=== PATIENT | male | born 1975 | race Caucasian/White ===

== ENCOUNTER 2021-05-08 10:30 | Observation (INO) | payer SELFPAY ==
[~2021-05-08 10:30] MED LIST: Iopamidol 370 76% 100 ML VIAL ONE; Iopamidol-370 76% 500 ML 1 ML ONE
[2021-05-08 11:08] LABS: #Basophils 0.1 thou/uL (0.0-0.2); #Eosinphils 0.1 thou/uL (0.0-0.7); #Monocytes 0.5 thou/uL (0.11-0.59); #Neutrophils 4.4 thou/uL (1.40-6.50); %Eosinophils 1.7 % (0.0-10.0); %Lymphocytes 28.4 % (21.0-51.0); %Monocytes 6.3 % (0.0-10.0); %Neutrophils 62.6 % (42.0-75.0); Hemoglobin 16.1 g/dL (14.0-18.0); Mean Corpuscular Volume 88.9 fL (78.0-98.0); Mean Platelet Volume 8.8 fL (7.4-10.4); Platelet Count 190 thou/uL (130-400); RBC Distribution Width 11.2 % (11.5-14.5); Red Blood Cell (RBC) Count 5.03 mill/uL (4.70-6.10)
[2021-05-08 11:38] LABS: ALT (SGPT) 19 U/L (8-55); AST (SGOT) 12 U/L (5-34); Albumin 4.2 g/dL (3.5-5.0); Alkaline Phosphatase 95 U/L (40-110); Anion Gap 12 mmol/L (10-20); BUN (Urea Nitrogen) 8 mg/dL (8.9-20.6); Bilirubin, Total 0.6 mg/dL (0.2-1.2); Calc. Creatinine Clearance 0 mL/min (70-130); Calcium 9.3 mg/dL (7.8-10.44); Carbon Dioxide 28 mmol/L (22-29); Chloride 100 mmol/L (98-107); Globulin 3.3 g/dL (2.4-3.5); Glucose 93 mg/dL (70-105); Protein, Total 7.5 g/dL (6.0-8.3); Sodium 136 mmol/L (136-145)
[2021-05-08] MEDS ORDERED: Nitroglycerin 0.4 MG TAB (25 Tab Bottle) SL PRN ×2 (13:22→14:58)
[2021-05-08] MEDS ORDERED: Ondansetron ODT 4 MG TAB PO PRN (13:24)
[2021-05-08] MEDS ORDERED: Calcium Carbonate 500 MG ChewTAB PO PRN (13:24)
[2021-05-08] MEDS ORDERED: Ondansetron PF 4 MG/2 ML Vial IVP PRN (13:24)
[2021-05-08] MEDS ORDERED: Acetaminophen 325 MG TAB PO PRN (13:24)
[2021-05-08] MEDS ORDERED: Nitroglycerin 2% Ointment 1 INCH/1 GM Packet ONE (13:41)
[2021-05-08] MEDS ORDERED: Morphine 4 MG/ML VIAL ONE (13:41)
[2021-05-08] MEDS ORDERED: cloNIDine 0.1 MG TAB PO PRN (13:48)
[2021-05-08] MEDS ORDERED: Morphine 2 MG/ML VIAL SLOW IVP PRN (13:48)
[2021-05-08] MEDS ORDERED: Verapamil 5 MG/2 ML VIAL ONE (13:58)
[2021-05-08] MEDS ORDERED: Heparin 10,000 UNITS/ 10 ML VIAL ONE (13:58)
[2021-05-08] MEDS ORDERED: Lidocaine 1% (PF) 30 ML VIAL ONE (13:59)
[2021-05-08] MEDS ORDERED: Nitroglycerin 100MG/250ML BOT 250 ML ONE (13:59)
[2021-05-08] MEDS ORDERED: Nitroglycerin 2% Ointment 1 INCH/1 GM Packet TOP SCH (14:00)
[2021-05-08 14:26] LABS: Troponin I Less than 0.010 ng/mL (< 0.028)
[2021-05-08] MEDS ORDERED: Fentanyl 100 MCG/2 ML VIAL ONE (14:38)
[2021-05-08] MEDS ORDERED: Midazolam HCl 2 mg/2 ml Vial ONE (14:39)
[2021-05-08] MEDS ORDERED: Acetaminophen/Codeine 30-300mg Tablet PO PRN ×2 (14:58)
[2021-05-08] MEDS ORDERED: Sodium Chloride 0.9% 200 ML IV PRN (14:58)
[2021-05-08] MEDS ORDERED: Sodium Chloride 0.9% 1,000 ML IV SCH (15:00)
[2021-05-08 15:35] VITALS: BMI 33.4
[2021-05-08] MEDS: Carvedilol 6.25 MG TAB PO SCH (15:57)
[2021-05-08] MEDS ORDERED: Mag-Al 1200 mg/1200 mg/30 ML UDCUP PO PRN (18:34)
[2021-05-08] MEDS: Senokot S 8.6-50 MG TAB PO SCH (20:30)
[2021-05-08] MEDS ORDERED: Atorvastatin Calcium 40 MG TAB PO SCH (21:00)
[2021-05-08] MEDS ORDERED: Famotidine 20 MG TAB PO SCH (21:00)
[2021-05-08] MEDS ORDERED: Lisinopril 20 MG TAB PO SCH (21:00)
[2021-05-08 23:26] LABS: SARS-CoV-2 PCR by NAA Not Detected (NotDetected)
[2021-05-09] MEDS: Carvedilol 6.25 MG TAB PO SCH (07:50)
[2021-05-09] MEDS: Senokot S 8.6-50 MG TAB PO SCH (07:51)
[2021-05-09 08:36] LABS: #Eosinphils 0.1 thou/uL (0.0-0.7); #Lymphocytes 1.6 thou/uL (1.20-3.40); #Monocytes 0.4 thou/uL (0.11-0.59); #Neutrophils 4.1 thou/uL (1.40-6.50); %Basophils 0.6 % (0.0-1.0); %Eosinophils 1.2 % (0.0-10.0); %Lymphocytes 26.5 % (21.0-51.0); %Neutrophils 65.7 % (42.0-75.0); Hemoglobin 15.7 g/dL (14.0-18.0); Mean Corpuscular HGB CONC 33.9 g/dL (32.0-36.0); Mean Corpuscular Hemoglobin 30.7 pg (27.0-31.0); Mean Corpuscular Volume 90.5 fL (78.0-98.0); Mean Platelet Volume 8.8 fL (7.4-10.4); Platelet Count 168 thou/uL (130-400); RBC Distribution Width 11.3 % (11.5-14.5); Red Blood Cell (RBC) Count 5.11 mill/uL (4.70-6.10); White Blood Cell (WBC) Count 6.2 thou/uL (4.8-10.8)
[2021-05-09 08:45] LABS: Anion Gap 11 mmol/L (10-20); BUN (Urea Nitrogen) 9 mg/dL (8.9-20.6); Calc. Creatinine Clearance 141 mL/min (70-130); Carbon Dioxide 30 mmol/L (22-29); Chloride 101 mmol/L (98-107); Glucose 89 mg/dL (70-105); Potassium 4.3 mmol/L (3.5-5.1); Sodium 138 mmol/L (136-145)
[2021-05-09] MEDS ORDERED: Aspirin 81 mg Enteric Coated Tablet PO SCH (09:00)
[2021-05-09] MEDS ORDERED: Lisinopril 20 MG TAB PO SCH (09:00)
[2021-05-09] MEDS ORDERED: Prasugrel 10 MG TAB PO SCH (09:00)
[2021-05-09 11:52] VITALS: TEMP 97.4
[2021-05-09 12:17] VITALS: BP 126/86
== END 2021-05-09 13:28 | disposition home or self-care (01) ==
LOC: ERS 10:30 → ERHOLD 12:07 → 2SW 15:32
PROVIDERS: ADMIT Internal Medicine; ATTEND Internal Medicine
PROC: 4A023N7 Measurement of Cardiac Sampling and Pressure, Left Heart, Percutaneous Approach (ICD-10-PCS; principal; 2021-05-08)
PROC: B2111ZZ Fluoroscopy of Multiple Coronary Arteries using Low Osmolar Contrast (ICD-10-PCS; 2021-05-08)
DX: I25.119 Atherosclerotic heart disease of native coronary artery with unspecified angina pectoris (principal); I25.2 Old myocardial infarction; I13.0 Hypertensive heart and chronic kidney disease with heart failure and stage 1 through stage 4 chronic kidney disease, or unspecified chronic kidney disease; N18.2 Chronic kidney disease, stage 2 (mild); I50.42 Chronic combined systolic (congestive) and diastolic (congestive) heart failure; E78.5 Hyperlipidemia, unspecified; I08.1 Rheumatic disorders of both mitral and tricuspid valves; Z87.891 Personal history of nicotine dependence; Z79.82 Long term (current) use of aspirin; Z79.899 Other long term (current) drug therapy; Z95.5 Presence of coronary angioplasty implant and graft; Z20.822 Contact with and (suspected) exposure to COVID-19
CPT/HCPCS: 36415; 71045; 71275; 74174; 80048; 80053; 83690; 83735; 83880; 84484; 85025; 85379; 93005; 93306; 93458; 93798; 96374; G0378; J1644; J2001; J2250; J2270; J3010; Q9967; U0003; U0005